=== PATIENT | male | born 1990 | race Caucasian/White ===

== ENCOUNTER 2017-04-10 22:52 | Emergency (ER) | payer OTHER ==
[~2017-04-10] VITALS: Ht 175.3 cm; Wt 124.7 kg
[2017-04-10 22:54] VITALS: BP 142/90
--- NOTE | 2017-04-10 23:14 | NUR ---
PT TAKEN TO [facility] FROM [facility]
--- NOTE | 2017-04-10 23:20 | NUR ---
PT RETURN TO [facility]OB[facility]
--- NOTE | 2017-04-10 23:27 | NUR ---
PT TAKEN TO CT
--- NOTE | 2017-04-10 23:41 | NUR ---
PT RETURN FROM CT
--- NOTE | 2017-04-10 23:45 | NUR ---
26Y M PRESENTED IN ER C/O OF LOW BACK PAIN. PAIN 8/10 IN SCALE . NO DISTRESS NOTED.
--- NOTE | 2017-04-11 00:17 | NUR ---
Dr. Conrad evaluating patient at bedside.
[2017-04-11] MEDS ORDERED: KETOROLAC 60 MG/2 ML VIAL IM ONE (00:30)
[2017-04-11 01:30] VITALS: BP 142/90
--- NOTE | 2017-04-11 01:30 | NUR ---
Patient discharged with v/s stable. Written and verbal after care instructions given and explained. Patient alert, oriented and verbalized understanding of instructions. Ambulatory with steady gait. All questions addressed prior to discharge. ID band removed. Patient advised to follow up with PMD. Rx of MOTRIN AND FLEXERIL given. Patient educated on indication of medication including possible reaction and side effects. Opportunity to ask questions provided and answered.
== END 2017-04-11 01:30 | disposition home or self-care (01) ==
LOC: MED 22:52
DX: S39.012A Strain of muscle, fascia and tendon of lower back, initial encounter (principal); R03.0 Elevated blood-pressure reading, without diagnosis of hypertension; X58.XXXA Exposure to other specified factors, initial encounter; Y93.89 Activity, other specified; Y92.89 Other specified places as the place of occurrence of the external cause; Y99.8 Other external cause status
CPT/HCPCS: 72100; 72131; 96372; 99284; J1885

== ENCOUNTER 2021-10-03 19:22 | Emergency (ER) | payer MEDICAID, OTHER ==
[~2021-10-03] VITALS: Ht 175.3 cm; Wt 129.3 kg
[2021-10-03 19:28] VITALS: BP 162/108
[2021-10-03] MEDS ORDERED: LIDOCAINE MPF 1% 10 MG/ML VIAL INJ ONE ×2 (21:25→21:30)
--- NOTE | 2021-10-03 21:25 | NUR ---
PT TAKEN TO CHAIR C
[2021-10-03] MEDS ORDERED: LIDOCAINE MPF 1% 15 ML ONE (21:29)
--- NOTE | 2021-10-03 21:30 | NUR ---
ALL CARE PROVIDED BY DR. GIMENEZ. NO NURSING INTERVENTIONS DONE
--- NOTE | 2021-10-03 21:30 | NUR ---
DR. GIMENEZ EVALUTING PT
[2021-10-03] MEDS ORDERED: CEPH-588 PO (21:36)
[2021-10-03] MEDS ORDERED: NAPR-54 PO (21:36)
--- NOTE | 2021-10-03 21:45 | NUR ---
PT CLEARED FOR DISCHARGE. DR. GIMENEZ PROVIDED ALL DISCHARGE INSTRUCTIONS AND MEDICATION ADMINISTRATION. RX OF NAPROSYN AND KEFLEX OFFERED.
== END 2021-10-03 21:45 | disposition home or self-care (01) ==
LOC: MED 19:22
DX: L03.012 Cellulitis of left finger (principal); E11.9 Type 2 diabetes mellitus without complications
CPT/HCPCS: 10060; 73130; 99283; J2001

== ENCOUNTER 2023-06-10 18:03 | Emergency (ER) | payer MEDICAID ==
[~2023-06-10] VITALS: Ht 175.3 cm; Wt 124.7 kg
[~2023-06-10 18:03] MED LIST: CEPH-588 PO; CLIN300C2 PO; IBUP-2213 PO; NAPR-54 PO
[2023-06-10 18:27] VITALS: BP 144/92; PULSE 106; RESP 20; TEMP 97
--- NOTE | 2023-06-10 19:58 | NUR ---
PT TAKEN TO BED 1
[2023-06-10] MEDS ORDERED: LIDOCAINE 1% 500 MG/ 50 ML VIAL INJ ONE (20:20)
[2023-06-10] MEDS ORDERED: LIDOCAINE MPF 1% 5 ML ONE (20:25)
--- NOTE | 2023-06-10 20:30 | NUR ---
32yo male with cc abscess x 4 days. reports it worsen today. pt resting on bed. a/ox4 not in distress. on monitor. call light within reach. pt instructed on how to use call light. pt returned demonstration. all needs met at this time. bed locked in lowest position. side rails x2 for safety.
--- NOTE | 2023-06-10 22:35 | NUR ---
ermd at bedside
[2023-06-10] MEDS ORDERED: SULF-59 PO ×2 (22:46→22:56)
[2023-06-10] MEDS ORDERED: IBUP-2213 PO ×2 (22:47→22:56)
--- NOTE | 2023-06-10 22:50 | NUR ---
wound care and dressing done
[2023-06-10 23:00] VITALS: BP 130/92; PULSE 106; RESP 20; TEMP 97.4; O2SAT 99
--- NOTE | 2023-06-10 23:00 | NUR ---
Patient discharged with v/s stable. Written and verbal after care instructions given and explained. Patient alert, oriented and verbalized understanding of instructions. Ambulatory with steady gait. All questions addressed prior to discharge. ID band removed. Patient advised to follow up with PMD. Rx given to pt. Patient educated on indication of medication including possible reaction and side effects. Opportunity to ask questions provided and answered.
== END 2023-06-10 23:00 | disposition home or self-care (01) ==
LOC: MED 18:03
DX: L02.31 Cutaneous abscess of buttock (principal); E11.9 Type 2 diabetes mellitus without complications; Z79.899 Other long term (current) drug therapy
CPT/HCPCS: 10060; 99282; J2001

== ENCOUNTER 2024-01-02 19:27 | Emergency (ER) | payer MEDICAID, OTHER ==
[~2024-01-02] VITALS: Ht 177.8 cm; Wt 127.0 kg
[~2024-01-02 19:27] MED LIST changes: +SULF-59 PO
[2024-01-02 20:50] VITALS: BP 148/90; PULSE 103; RESP 19; TEMP 98; O2SAT 99
[2024-01-02 22:31] VITALS: O2SAT 99
[2024-01-02] MEDS: LIDOCAINE MPF 1% 10 MG/ML VIAL INJ ONE (23:20)
[2024-01-02 23:38] LABS: BASOPHILS # (AUTO) 0.1 K/uL (0.00-0.22); BASOPHILS % (AUTO) 0.7 % (0.0-2.0); EOSINOPHILS # (AUTO) 0.1 K/uL (0-0.4); EOSINOPHILS % (AUTO) 0.9 % (0.0-4.0); HEMOGLOBIN 17.2 g/dL (12.0-18.0); LYMPHOCYTES # (AUTO) 2.3 K/uL (2.0-11.5); LYMPHOCYTES % (AUTO) 15.3 % (20.5-51.1); MEAN CORPUSCULAR HEMOGLOBIN 30 pg (27-31); MEAN CORPUSCULAR HGB CONC 35 g/dL (33-37); MEAN CORPUSCULAR VOLUME 85.9 fL (80-94); MONOCYTES # (AUTO) 1.1 K/uL (0.8-1.0); MONOCYTES % (AUTO) 7.6 % (1.7-9.3); NEUTROPHILS # (AUTO) 11.3 K/uL (1.8-7.7); NEUTROPHILS % (AUTO) 75.5 % (42.2-75.2); PLATELET COUNT (AUTO) 259 K/uL (140-450); RED CELL DISTRIBUTION WIDTH 13.4 % (11.6-13.7); WHITE BLOOD COUNT (AUTO) 14.9 K/uL (4.8-10.8)
[2024-01-02 23:52] LABS: ANION GAP 12.4 (8-16); CALCIUM 9.3 mg/dL (8.5-10.1); CARBON DIOXIDE 27.8 mmol/L (21-32); CREATININE 0.8 mg/dL (0.6-1.3); POTASSIUM 4.2 mmol/L (3.5-5.1)
[2024-01-03] MEDS ORDERED: KETOROLAC 30 MG/ML VIAL IM ONE (00:05)
[2024-01-03] MEDS: KETOROLAC 30 MG/ML VIAL IVP ONE (00:46)
[2024-01-03] MEDS: NACL 0.9% 2,000 ML IV ONE (01:33)
[2024-01-03] MEDS ORDERED: cefTRIAXone 1,000 MG VIAL ONE (01:34)
[2024-01-03] MEDS ORDERED: CEPH-588 PO (01:58)
[2024-01-03] MEDS ORDERED: SULF-59 PO (01:58)
[2024-01-03] MEDS ORDERED: IBUP-2213 PO (02:56)
[2024-01-03 03:10] VITALS: BP 149/78; PULSE 89; RESP 17; TEMP 98; O2SAT 97
== END 2024-01-03 03:10 | disposition home or self-care (01) ==
LOC: MED 19:27
DX: L02.31 Cutaneous abscess of buttock (principal); L03.317 Cellulitis of buttock; E11.65 Type 2 diabetes mellitus with hyperglycemia; Z79.2 Long term (current) use of antibiotics; Z79.1 Long term (current) use of non-steroidal anti-inflammatories (NSAID)
CPT/HCPCS: 10060; 36415; 80048; 85025; 96365; 96375; 99284; J0696; J1885; J7030; J2001